=== PATIENT | female | born 1955 | race Caucasian/White ===

== ENCOUNTER 2022-09-21 05:57 | Day surgery (SDC) | payer MEDICARE, BC, SELFPAY ==
[2022-09-21] VITALS (14 sets, daily range): BP systolic 141–182; BP diastolic 81–114; PULSE 65–81; RESP 10–20; TEMP 36.1–36.9; O2SAT 91–97; BMI 43.2
[2022-09-21] MEDS: SODIUM CHLORIDE 0.9 % (FLUSH) 10 ML SYRINGE IVF (06:35)
[2022-09-21] MEDS: LACTATED RINGERS 1000 ML 1,000 ML 100 ML IV (06:35)
[2022-09-21] MEDS: CEFAZOLIN 2 GM INJ IVP (07:25)
--- NOTE | 2022-09-21 07:55 | SUR.OPER ---
PATIENT QUESTIONS ANSWERED SATISFACTORILY PREOPERATIVELY.? PATIENT BROUGHT TO OR #2 PER CART.? Patient positioned supine on OR #2 bed.? The perioperative?team supported arms bilaterally on arm boards.? Final approval of positioning by surgeon.? CONTINUOUS IRRIGATION OF THE RIGHT KNEE DURING THE PROCEDURE WITH NACL.
[2022-09-21] MEDS: BUPIVACAINE 0.25% 30 ML INJECTION (08:14)
--- NOTE | 2022-09-21 08:25 | PM.ORPRC ---
Procedure Note Date of procedure: 09/21/22 Procedure: PREOPERATIVE DIAGNOSIS: Right knee medial meniscus tear POSTOPERATIVE DIAGNOSIS: Right knee medial meniscus tear, lateral meniscus tear, synovitis/inflammation NAME OF OPERATION: Right knee arthroscopic partial medial and lateral meniscectomy, tricompartmental synovectomy SURGEON: Kristian Lay MD CENSUS ENUMERATOR: GELA Alatorre ANESTHESIA: General ESTIMATED BLOOD LOSS: 0 mL COMPLICATIONS: None SPECIMENS: None DRAINS: None PREOPERATIVE ANTIBIOTICS: Ancef 3 gram INDICATIONS: The patient is a 67-year-old with a history of right knee medial pain. MRI scan is consistent with a medial meniscus tear. Despite appropriate nonoperative management, including activity modification, antiinflammatories, [id number] pain medication, bracing, physical therapy, and injections they continue to have pain and disability. Operative intervention was offered. The risks, benefits and expected outcomes were discussed in detail. These included but were not limited to: Infection, bleeding, injury to blood vessel or nerve, venous thromboembolism. All questions were answered to their satisfaction. PROCEDURE: In general anesthesia was administered. The patient was placed supine on the operating room table. The right lower extremity was prepped and draped in the usual sterile fashion. The limb was exsanguinated with the Maurizio bandage. The pneumatic tourniquet was inflated to 300 mmHg. A standard anterolateral portal was established. The arthroscope was introduced. The working portal was established anteromedially. Diagnostic arthroscopy was performed with findings as follows: The knee is full of a marked amount of clumped inflammatory debris throughout. The suprapatellar pouch is full of inflammatory debris. Articular surface on the patella is normal. Articular surface on the trochlea is normal. The medial gutter is full of inflammatory debris. The medial compartment shows focal grade 2/3 change on the medial femoral condyle, grade 2 change on the medial tibial plateau. The medial meniscus has an undersurface tear at the junction of the midbody and posterior horn with some degenerative tearing of the leading edge of the posterior horn. The notch shows the ACL to be degenerative, but with intact fibers. The lateral compartment shows normal articular cartilage on the lateral femoral condyle, focal grade 2/3 change on the posterior aspect of the lateral tibial plateau. The lateral meniscus has degenerative tearing of the leading edge of the midbody, into the posterior horn. The lateral gutter is full of inflammatory debris. The midbody and posterior horn of the medial meniscus was debrided to a stable base using a combination of david through both portals. Unstable chondral flaps on the medial femoral condyle and lateral tibial plateau were debrided with the shaver through both portals, taken to a stable base. The leading edge of the midbody and posterior horn of the lateral meniscus was debrided with the shaver through both portals. Finally, the inflammatory debris was aggressively debrided throughout the knee including the medial and lateral compartments the medial and lateral gutters and the suprapatellar pouch. Arthroscopic instruments were removed, the portal sites were Steri-Stripped closed, the knee was infiltrated with 30 mL of 0.25% Marcaine without epinephrine. A dry dressing was applied, the tourniquet was released. Sponge and needle counts were correct x 2. The patient tolerated the procedure well. There were no apparent complications. They were carefully transferred to the hospital bed and taken to the postanesthesia care unit in satisfactory condition. PLAN: The patient will be discharged to home. They may weightbear as tolerates. Range of motion will be unrestricted. Given the amount of inflammation in her knee, this could represent gout/pseudogout. Therefore, I have suggested that she make some dietary changes. This would include no sugar or gluten and a low carb approach. Additionally, given the amount of stiffness in her knee, I think she will likely need some formal physical therapy postop. She will follow up in the office next week for a wound check.
--- NOTE | 2022-09-21 08:32 | W.ANESCHARGE ---
Anesthesia Charges Start Date/Time Anesthesia Start Date: 09/21/22 Anesthesia Start Time: 07:15 Stop Date/Time Anesthesia Stop Date: 09/21/22 Anesthesia Stop Time: 08:33
--- NOTE | 2022-09-21 08:44 | W.ANESCHARGE ---
Anesthesia Charges Start Date/Time Anesthesia Start Date: 09/21/22 Anesthesia Start Time: 07:15 Stop Date/Time Anesthesia Stop Date: 09/21/22 Anesthesia Stop Time: 08:33
[2022-09-21] MEDS: OxyCODONE/APAP 5-325 TABLET PO (09:37)
== END 2022-09-21 10:40 | disposition home or self-care (01) ==
PROVIDERS: Visit Provider Orthopaedic Surgery
PROC: (CPT 29870; principal; 2022-09-21 07:15)
DX: M23.221 Derangement of posterior horn of medial meniscus due to old tear or injury, right knee (principal); M23.251 Derangement of posterior horn of lateral meniscus due to old tear or injury, right knee
CPT/HCPCS: 29880; 01400; A9270; J0665; J0690; J1100; J2250; J2405; J2704; J3010; J3490; J7120